=== PATIENT | female | born 2000 | race Asian ===

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

== ENCOUNTER 2018-05-16 21:15 | Emergency (ER) | payer MEDICAID, OTHER ==
[~2018-05-16] VITALS: Ht 147.3 cm; Wt 39.0 kg
--- NOTE | 2018-05-16 21:20 | NUR ---
Pt came to Emergency dept. complaining of Abd pain, nausea/vomitting/diarrhea since yesterday. Pt states she has a headache, chest pain, and feelz dizzy. Pt is AAXO4. Respirations are even and unlabored. Pt put on the monitor and pending eval from ER MD.
--- NOTE | 2018-05-16 21:48 | NUR ---
PAC PRUSHA at bedside for eval.
[2018-05-16] MEDS ORDERED: ONDANSETRON HCL/PF 4 MG/2 ML VIAL ONE (21:53)
[2018-05-16 21:55] LABS: APPEARANCE,URINE HAZY (CLEAR); BILIRUBIN,URINE Negative (NEGATIVE); BLOOD, URINE Moderate Ery/uL (NEGATIVE); COLOR,URINE Yellow (YELLOW); KETONES,URINE Negative (NEGATIVE); LEUKOCYTE ESTERASE ,URINE Negative (NEGATIVE); NITRITE, URINE Negative (NEGATIVE); PROTEIN,URINE Negative (NEGATIVE); UGLUCOSE Negative (NEGATIVE); UROBILINOGEN,URINE 0.2 EU/dL (0.2)
[2018-05-16 21:58] LABS: BACTERIA,URINE None seen /HPF (None Seen); SQUAMOUS EPITHELIAL CELL,UR Few /HPF (None Seen); WBC,URINE 0-2 /HPF (0-3)
[2018-05-16] MEDS ORDERED: ONDANSETRON HCL/PF 4 MG/2 ML VIAL IV ONE (22:00)
[2018-05-16] MEDS ORDERED: IV NS 0.9% 1,000 ML BAG IV ONE (22:00)
--- NOTE | 2018-05-16 22:06 | NUR ---
Radiology at bedside for XRAY.
[2018-05-16 22:08] LABS: BASOPHILS # (AUTO) 0.1 /CMM (0.0-0.2); BASOPHILS % (AUTO) 0.5 % (0.0-2.0); EOSINOPHILS % (AUTO) 0.6 % (0.0-6.0); HEMATOCRIT 42 % (33-45); HEMOGLOBIN 13.8 g/dL (11.5-14.8); LYMPHOCYTES # (AUTO) 1.2 /CMM (0.8-4.8); LYMPHOCYTES % (AUTO) 7.9 % (20.0-44.0); MEAN CORPUSCULAR HGB CONC 33 g/dl (31.0-36.0); MEAN CORPUSCULAR VOLUME 98 fL (82-100); MONOCYTES # (AUTO) 0.6 /CMM (0.1-1.30); MONOCYTES % (AUTO) 3.8 % (2.0-12.0); NEUTROPHILS # (AUTO) 13.1 /CMM (1.8-8.9); NEUTROPHILS % (AUTO) 87.2 % (43.0-81.0); PLATELET COUNT (AUTO) 306 /CMM (150-450); RED BLOOD CELL COUNT(AUTO) 4.27 MIL/uL (4.0-5.2)
--- NOTE | 2018-05-16 22:16 | NUR ---
Pt resting in bed and being monitored.
[2018-05-16 22:17] LABS: CALCIUM, SERUM 8.6 mg/dL (8.5-10.1); CREATININE 0.8 mg/dL (0.6-1.3); POTASSIUM 3.8 mmol/L (3.5-5.1)
[2018-05-16 22:55] LABS: ALBUMIN 3.4 g/dL (3.4-5.0); BILIRUBIN,DIRECT 0.1 mg/dL (0.0-0.2); BILIRUBIN,TOTAL 0.8 mg/dL (0.2-1.0); TOTAL PROTEIN, SERUM 7.7 g/dL (6.4-8.2)
[2018-05-16] MEDS ORDERED: KETOROLAC TROMETHAMINE 15 MG/ML VIAL ONE (22:57)
[2018-05-16] MEDS ORDERED: KETOROLAC TROMETHAMINE INJ 30 MG/ML VIAL IV ONE (23:00)
--- NOTE | 2018-05-16 23:26 | NUR ---
Patient discharged to home in stable condition. Written and verbal after care instructions given. Patient verbalizes understanding of instruction.IV removed. Catheter intact and site benign. Pressure and 4x4 applied to site. No bleeding noted. Pt ambulatory with steady gait.
[2018-05-16 23:27] VITALS: BP 127/69
== END 2018-05-16 23:27 | disposition home or self-care (01) ==
LOC: ER 21:17
DX: R10.30 Lower abdominal pain, unspecified (principal); B34.9 Viral infection, unspecified; R11.2 Nausea with vomiting, unspecified
CPT/HCPCS: 36415; 71045; 80048; 80076; 81001; 84703; 85025; 87804 ×2; 96361; 96374; 96375; 99284; A4606; J1885; J2405; J7030; Z7610; 81000-TC; 87400